=== PATIENT | male | born 1975 | race Caucasian/White ===

== ENCOUNTER 2024-04-25 11:39 | Emergency (ER) | payer OTHER, SELFPAY ==
[2024-04-25 12:27] VITALS: BP 158/92
[2024-04-25 12:41] LABS: % Basophils 0.8 % (0-2); % Eosinophils 1.4 % (0-6); % Immature Granulocytes 0.4 % (0-0.5); % Lymphocytes 14.1 % (20.5-51.1); % Monocytes 10.6 % (1.7-9.3); % Neutrophils 72.7 % (42.2-75.2); Absolute Basophils 0.1 10^3/uL (0-0.2); Absolute Eosinophils 0.2 10^3/uL (0-0.7); Absolute Immature Granulocytes 0.1 10^3/uL (0-0.05); Absolute Lymphocytes 1.8 10^3/uL (1.2-3.4); Absolute Monocytes 1.4 10^3/uL (0.1-0.6); Absolute Neutrophils 9.3 10^3/uL (1.4-6.5); Hematocrit 50.4 % (39.0-52.0); Hemoglobin 18.1 g/dL (13.0-18.0); Mean Corp Hgb Conc. 35.9 g/dL (33.0-37.0); Mean Corpuscular Hgb 32.4 pg (27.0-31.0); Mean Corpuscular Volume 90.2 fL (80.0-94.0); Nucleated Red Blood Cells % 0 % (-); Platelet Count 292 10^3/uL (130-400); Red Blood Cell Count 5.59 10^6/uL (4.70-6.10); Red Cell Dist. Width 12.9 % (11.5-14.5); White Blood Cell Count 12.7 10^3/uL (4.8-10.8)
[2024-04-25 12:53] LABS: Blood Urea Nitrogen 16 mg/dl (9-20); Calcium 9.9 mg/dl (8.4-10.2); Carbon Dioxide 27 mmol/L (22-30); Chloride 103 mmol/L (98-107); Glucose 112 mg/dl (70-99); Potassium 4.2 mmol/L (3.5-5.1); Sodium 138 mmol/L (135-145); eGFR > 60.00
[2024-04-25 12:55] LABS: Alcohol None Detected
[2024-04-25 12:59] LABS: Amphetamines Positive (Negative); Barbiturates Negative (Negative); Benzodiazepines Positive (Negative); Buprenorphine Positive (Negative); Cocaine Negative (Negative); Methadone Negative (Negative); Methamphetamines Negative (Negative); Opiates Negative (Negative)
[2024-04-25 13:00] LABS: Marijuana Positive (Negative); Phencyclidine Negative (Negative); Tricyclic Antidepressants Positive (Negative)
[2024-04-25 13:37] LABS: Fentanyl, Urine Negative (Negative)
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
[2024-04-25 19:18] VITALS: BP 155/97
== END 2024-04-25 22:22 | disposition other institution (70) ==
LOC: EMR 11:39
PROVIDERS: Emergency Medicine; EMERGENCY PHYSICIAN Student in an Organized Health Care Education/Training Program
DX: F15.10 Other stimulant abuse, uncomplicated (principal); F31.9 Bipolar disorder, unspecified
CPT/HCPCS: 99283; 80048; 80306; 80307; 82077; 85025

== ENCOUNTER 2025-08-22 18:57 | Emergency (ER) | payer BC, SELFPAY ==
[2025-08-22 22:13] VITALS: BMI 31.4
[2025-08-22] MEDS: DECADRON 10 MG IV (22:19)
[2025-08-22] MEDS: PEPCID 20 MG IV (22:23)
[2025-08-22] MEDS: BENADRYL 25 MG IV (22:26)
[2025-08-22 22:38] LABS: Hematocrit 39.9 % (39.0-52.0); Hemoglobin 14.0 g/dL (13.0-18.0); Mean Corp Hgb Conc. 35.1 g/dL (33.0-37.0); Mean Corpuscular Volume 89.3 fL (80.0-94.0); Nucleated Red Blood Cells % 0 % (-); Platelet Count 274 10^3/uL (130-400); Red Cell Dist. Width 12.9 % (11.5-14.5)
[2025-08-22 22:57] LABS: ALT (SGPT) 67 U/L (0-50); AST (SGOT) 50 U/L (17-59); Albumin 4.3 g/dl (3.5-5.0); Alkaline Phosphatase 80 U/L (38-126); Blood Urea Nitrogen 15 mg/dl (9-20); Calcium 9.4 mg/dl (8.4-10.2); Carbon Dioxide 27 mmol/L (22-30); Chloride 103 mmol/L (98-107); Estimated Creatinine Clearance 120 ml/min; Glucose 99 mg/dl (70-99); Potassium 4.1 mmol/L (3.5-5.1); Sodium 136 mmol/L (135-145); Total Protein 7.1 g/dl (6.3-8.2); eGFR > 60.00
--- NOTE | 2025-08-22 23:54 | ED.GENMED ---
History of Present Illness
General
Chief Complaint: Skin Problem
Source: patient
Exam Limitations: none
Time Seen by Provider: 08/22/25 21:22
Nursing documentation reviewed up to this point in time: agreed with
History of Present Illness
History of Present Illness:
50-year-old male presenting to the emergency department today with concerns of rash to his feet now becoming more systemic around the body over the past day or so initial rash of the feet has been going on for multiple weeks went to an urgent care
yesterday started on antibiotics today has been increasingly itchy with diffuse rash. Denies any trouble swallowing or breathing no chest pain or shortness of breath.
Past History
Past History
ED Past Medical History: Asthma and Other (MRSA)
ED Past Surgical History: Orthopedic (Right radial pinning, ganglion cyst)
Social History
Tobacco: Non-smoker
Alcohol: None
Drug: None
Personal:
Living: with family
Family History
Family History: Other (Father age 51 of pancreatic cancer, sister had ovarian cancer, survived. Brother had skin cancer. Mother of sepsis at age 53 after knee surgery, she was a diabetic who 'didn't take care of herself.')
Review of Systems
Review of Systems
Allergies reviewed?: Yes
All Other Systems: ROS reviewed and negative except as documented in HPI and ROS
Phy Exam
Physical Exam
Physical Exam:
GENERAL: Alert , in no apparent distress
EYE: pupils equal and reactive
NECK: Supple, no significant adenopathy.
ENT: o/p clr, mmm.
CARDIAC: Regular rate and rhythm .
LUNGS: Clear breath sounds bilaterally, no acute respiratory distress, no wheezes/rales/rhonchi
ABDOMEN: Soft, without focal tenderness, no r/g, no cvat
NEUROLOGICAL: Alert and oriented, no focal neuro deficits
SKIN: Scattered papular rash slight excoriations low back scattered throughout the low back legs arms neck does not involve the front of the face, does have scaly flaky rash of the feet bilaterally well-demarcated nontender no purulent drainage warm
and dry, skin intact.
MUSCULOSKELETAL: No edema, well perfused.
PSYCH: Normal and appropriate interaction.
Course
Orders/Labs/Results
Orders:
Orders
08/22/25 21:46
Dexamethasone Sod Phosphate [Decadron] 10 mg IV NOW STA
Diphenhydramine [Benadryl] 25 mg IV NOW STA
Famotidine [Pepcid] 20 mg IV NOW STA
08/22/25 22:18
CBC/With Diff [Complete Blood Count/With Diff] Urgent
CMP [Comprehensive Metabolic Panel] Urgent
Abnormal Lab Results
08/22/25
22:18
RBC 4.47 L 10^6/uL
(4.70-6.10)
MCH 31.3 H pg
(27.0-31.0)
Absolute Lymphs (auto) 4.0 H 10^3/uL
(1.2-3.4)
Absolute Monos (auto) 1.0 H 10^3/uL
(0.1-0.6)
Monocytes % 10.3 H %
(1.7-9.3)
ALT 67 H U/L
(0-50)
08/22/25 22:18
08/22/25 22:18
Vital Signs
Initial and Last Documented VS:
Initial Vital Signs
Temp Pulse Resp Pulse Ox
98.1 F 95 18 96
08/22/25 19:04 08/22/25 19:04 08/22/25 19:04 08/22/25 19:04
Last Documented Vital Signs
Temp Pulse Resp BP Pulse Ox
97.5 F 77 18 136/77 97
08/23/25 00:08 08/23/25 00:08 08/22/25 19:04 08/23/25 00:08 08/23/25 00:08
MDM/Problems Addressed
MDM/Problems Addressed:
50-year-old male presenting to the emergency department with went to an urgent care was treated with Keflex yesterday. Concerns of a scattered rash worsening over the past few days described as mainly itchy no significant pain but initially had a
rash to the top of feet bilaterally that he claims to be associated with wearing wet shoes. Labs here did not show any acute abnormalities no significant white count.. Attending physician Dr. Call as well as Dr. Arevalo saw the patient. They
felt there was a possibility of a secondary bacterial infection as well as atopic dermatitis. Additional information was obtained from the patient later in his visit that he has seen a circus rider in the past that felt he had atopic dermatitis
and was on medication for this in the past that look very similar on his feet. Concerning this is a likely diagnosis he was started on a prednisone taper and otherwise will follow-up closely with dermatology as an outpatient. Return precautions
given.
*Pulse Oximetry
SaO2: 96
Oxygen Mode of Delivery: Room air
Patient hypoxic: no (97)
*Critical Care Note
Total Time (30-74mins, 75-104mins- exclusive of procedures): Not Applicable
ED Attending Note
-
Portions of this chart may have been created with voice recognition software.� Occasional wrong word or��sound alike� substitutions may have occurred due to the inherent limitations of voice recognition software.
Discharge Plan
Departure
Patient Disposition: Home (Routine Discharge)
Date of Disposition: 08/23/25
Time of Disposition: 00:18
Patient with high blood pressure during this ER visit?: No
Condition: Good
Covid-19: Not Applicable
Discharge Problem:
Rash
Instructions: Skin Rash (DC)
Prescriptions:
New
mupirocin [Centany] 2 % ointment
1 applic topical BID Qty: 90 0RF
prednisone 10 mg Tablet
See Rx Instructions .ROUTE .COMPLEX Qty: 30 0RF
Rx Instructions:
Take By Mouth:
40 mg daily x3 days, 30 mg daily x3 days,
20 mg daily x3 days, 10 mg daily x3 days.
No Action
albuterol sulfate 1 PUFF HFA aerosol inhaler
2 puff inhalation R Q4HPRN PRN (Reason: sob/wheezing)
fluoxetine 40 mg capsule
40 mg PO DAILY
Rx Instructions:
taken w/ 20mg = 60mg
atorvastatin 10 mg tablet
10 mg PO DAILY
divalproex 500 mg tablet,delayed release (DR/EC)
500 mg PO BID
dextroamphetamine-amphetamine 30 mg tablet
30 mg PO DAILY@1500
Patient Comments:
08/21/2023: last filled 08/19/23, 30 tabs for 30 days [facility]
testosterone cypionate 200 mg/mL oil
200 mg SC Q2W
dextroamphetamine-amphetamine 30 mg capsule,extended release 24hr
30 mg PO DAILY@0400
Patient Comments:
08/21/2023: last filled 08/19/23, 30 tabs for 30 days fr[facility]
propranolol 20 mg tablet
20 mg PO DAILY PRN (Reason: anxiety)
fluoxetine 20 mg capsule
20 mg PO DAILY
Rx Instructions:
taken w/ 40mg = 60mg
buprenorphine-naloxone 8-2 mg film
2 film sublingual BID
Patient Comments:
08/21/2023: last filled 07/30/23, 60 film for 30 days fr[facility]
Adbry 150 mg/mL syringe
150 mg SC Q2W
Centrum
1 tab PO DAILY
cephalexin 500 mg capsule
500 mg PO BID
Rx Instructions:
30 days supply given
acetaminophen [Tylenol] 325 mg Tablet
650 mg PO Q6H PRN (Reason: pain)
Referrals:
NONE,* [Family Provider, Internal Medicine]
Stand Alone Forms: Return to Work
Activity Restrictions/Additional Instructions:
You came to the emergency department today with concerns of rash. This could be your atopic dermatitis reoccurring and the systemic symptoms could be an inflammatory reaction. Please continue to take your antibiotic as well as the tapering dose of
steroid and follow-up closely with a circus rider. Return for any worsening, new or concerning symptoms.
Interventions
Interventions:
*Risk Screen - Suicide Last Done: 08/22/25 19:04
*General Assessment Last Done: 08/22/25 19:04
*Neglect/Abuse Screening Last Done: 08/22/25 22:13
*ED- Fall Risk Assessment Last Done: 08/22/25 22:13
*ED COVID-19 Vaccine History Last Done: 08/22/25 22:13
*ED Influenza Vaccine History Last Done: 08/22/25 22:13
*Nursing Disposition Last Done: 08/23/25 00:48
ED-Skin Assessment Last Done: 08/22/25 22:41
Discharge Date and Time
Print Language: ARABIC
[2025-08-23 00:08] VITALS: BP 136/77
== END 2025-08-23 00:48 | disposition home or self-care (01) ==
LOC: EMR 18:57
PROVIDERS: Physician Assistant; EMERGENCY PHYSICIAN Student in an Organized Health Care Education/Training Program
DX: R21 Rash and other nonspecific skin eruption (principal); J45.909 Unspecified asthma, uncomplicated; Z86.14 Personal history of Methicillin resistant Staphylococcus aureus infection
CPT/HCPCS: 99284; 96374; 96375 ×2; 80053; 85025

== ENCOUNTER 2025-09-03 08:09 | Emergency (ER) | payer BC, SELFPAY ==
[2025-09-03 08:10] VITALS: BP 127/98
--- NOTE | 2025-09-03 09:14 | ED.GENMED ---
History of Present Illness
General
Chief Complaint: Skin Problem
Source: patient
Exam Limitations: none
Time Seen by Provider: 09/03/25 09:01
History of Present Illness
History of Present Illness:
Patient returns with a recurrent rash. Both flanks the top of the feet antecubital area. Rash is itchy but also painful. No fever chills no systemic symptoms. Seemed improved on the steroids but steroids have been tapered. No new medications.
Has been on his medications for a long time.
Past History
Past History
ED Past Medical History: Asthma and Other (MRSA)
ED Past Surgical History: Orthopedic (Right radial pinning, ganglion cyst)
Social History
Tobacco: Non-smoker
Alcohol: None
Drug: None
Personal:
Living: with family
Family History
Family History: Other (Father age 51 of pancreatic cancer, sister had ovarian cancer, survived. Brother had skin cancer. Mother of sepsis at age 53 after knee surgery, she was a diabetic who 'didn't take care of herself.')
Review of Systems
Review of Systems
All Other Systems: Not applicable
Constitutional: Denies fever or chills
Phy Exam
Physical Exam
Physical Exam:
GENERAL: Alert and oriented in no apparent distress
EYE: Orbits normal.
NECK: Supple
CARDIAC: Regular rate and rhythm without any obvious murmurs.
LUNGS: Clear breath sounds,normal
ABDOMEN: Soft, without focal tenderness or distention
NEUROLOGICAL: Alert and oriented , grossly non-focal
SKIN: Warm and dry, maculopapular rash right flank left flank to the back bilaterally. Small scaly erythematous rash to the right antecubital area. Scaly rash with erythema to the dorsal feet mostly the left foot.
MUSCULOSKELETAL: No edema,no deformity.Good color
PSYCH: Normal and appropriate interaction.
Course
Vital Signs
Initial and Last Documented VS:
Initial Vital Signs
Temp Pulse Resp BP Pulse Ox
98.0 F 122 18 127/98 98
09/03/25 08:10 09/03/25 08:10 09/03/25 08:10 09/03/25 08:10 09/03/25 08:10
Last Documented Vital Signs
Temp Pulse Resp BP Pulse Ox
98.0 F 122 18 127/98 98
09/03/25 08:10 09/03/25 08:10 09/03/25 08:10 09/03/25 08:10 09/03/25 09:16
MDM/Problems Addressed
Differential Diagnosis Includes:
Patient is nontoxic no distress. No systemic symptoms. Rash appears to be somewhat of a contact or atopic dermatitis appearance. There may be a secondary infection of the dorsal foot although may just be inflammatory changes. I do not feel labs
would add benefit. We will change to doxycycline recurrent steroids and try to contact dermatology for closer follow-up
*Pulse Oximetry
SaO2: 98
Oxygen Mode of Delivery: Room air
Patient hypoxic: no
*Critical Care Note
Total Time (30-74mins, 75-104mins- exclusive of procedures): Not Applicable
Update Note
Update Note:
Patient has not made an appoint with dermatology. We will give him the number to call
ED Attending Note
-
Portions of this chart may have been created with voice recognition software.� Occasional wrong word or��sound alike� substitutions may have occurred due to the inherent limitations of voice recognition software.
Discharge Plan
Departure
Patient Disposition: Home (Routine Discharge)
Date of Disposition: 09/03/25
Time of Disposition: 10:03
Patient with high blood pressure during this ER visit?: Yes
Discharge Problem:
Recurring rash
Instructions: Skin Rash (DC), BLOOD PRESSURE
Prescriptions:
New
doxycycline hyclate 100 mg capsule
100 mg PO BID 10 Days Qty: 20 0RF
prednisone 10 mg tablet
10 mg PO DAILY Qty: 30 0RF
Rx Instructions:
4 tablets day 1. Then 1 less tablet every third day until gone
triamcinolone acetonide 0.5 % ointment
1 applic topical DAILY Qty: 15 0RF
No Action
albuterol sulfate 1 PUFF HFA aerosol inhaler
2 puff inhalation R Q4HPRN PRN (Reason: sob/wheezing)
fluoxetine 40 mg capsule
40 mg PO DAILY
Rx Instructions:
taken w/ 20mg = 60mg
atorvastatin 10 mg tablet
10 mg PO DAILY
divalproex 500 mg tablet,delayed release (DR/EC)
500 mg PO BID
dextroamphetamine-amphetamine 30 mg tablet
30 mg PO DAILY@1500
Patient Comments:
08/21/2023: last filled 08/19/23, 30 tabs for 30 days fr[facility]
testosterone cypionate 200 mg/mL oil
200 mg SC Q2W
dextroamphetamine-amphetamine 30 mg capsule,extended release 24hr
30 mg PO DAILY@0400
Patient Comments:
08/21/2023: last filled 08/19/23, 30 tabs for 30 days fr[facility]
propranolol 20 mg tablet
20 mg PO DAILY PRN (Reason: anxiety)
fluoxetine 20 mg capsule
20 mg PO DAILY
Rx Instructions:
taken w/ 40mg = 60mg
buprenorphine-naloxone 8-2 mg film
2 film sublingual BID
Patient Comments:
08/21/2023: last filled 07/30/23, 60 film for 30 days fr[facility]
Adbry 150 mg/mL syringe
150 mg SC Q2W
Centrum
1 tab PO DAILY
cephalexin 500 mg capsule
500 mg PO BID
Rx Instructions:
30 days supply given
acetaminophen [Tylenol] 325 mg Tablet
650 mg PO Q6H PRN (Reason: pain)
mupirocin [Centany] 2 % ointment
1 applic topical BID Qty: 90 0RF
prednisone 10 mg Tablet
See Rx Instructions .ROUTE .COMPLEX Qty: 30 0RF
Rx Instructions:
Take By Mouth:
40 mg daily x3 days, 30 mg daily x3 days,
20 mg daily x3 days, 10 mg daily x3 days.
Referrals:
Chandana Ortiz MD [Active, Gastroenterology]
NONE,* [Family Provider, Internal Medicine]
Lubna Escobar MD [Non-Admitting Privileges, Plastic Surgery]
Leah Enamorado MD [Consulting Staff, Dermatology] - Next open appointment
Activity Restrictions/Additional Instructions:
The prescriptions were sent to your pharmacy
Follow-up closely with your primary physician
You can also try the internet application developer above. Hopefully telling them that you are in the emergency department can expedite close follow-up
Recheck sooner with increased rash fever, other systemic symptoms or any other concerns
Interventions
Interventions:
*Risk Screen - Suicide Last Done: 09/03/25 08:10
*General Assessment Last Done: 09/03/25 08:10
*Neglect/Abuse Screening Last Done: 09/03/25 08:10
*Nursing Disposition Last Done: 09/03/25 10:16
Discharge Date and Time
Discharge Date/Time: 09/03/25 10:17
Print Language: KENYAN
== END 2025-09-03 10:17 | disposition home or self-care (01) ==
LOC: EMR 08:09
PROVIDERS: EMERGENCY PHYSICIAN Emergency Medicine
DX: R21 Rash and other nonspecific skin eruption (principal); J45.909 Unspecified asthma, uncomplicated; Z63.4 Disappearance and death of family member; Z80.0 Family history of malignant neoplasm of digestive organs; Z80.8 Family history of malignant neoplasm of other organs or systems; Z83.3 Family history of diabetes mellitus
CPT/HCPCS: 99282